=== PATIENT | female | born 1935 | race Native Hawaiian/Other Pacific Islander ===

== ENCOUNTER 2016-12-13 23:19 | Emergency (ER) | payer MEDICARE, OTHER ==
[2016-12-13 23:33] VITALS: O2SAT 99; BMI 21.4
--- NOTE | 2016-12-14 00:11 | ED PDOC ---
Arrival/HPI - General Chief Complaint: High Blood Pressure Time Seen by Provider: 12/13/16 23:41 Historian: Patient - History of Present Illness Narrative History of Present Illness (Text): 12/14/16 00:11 A 81 year old female, whose past medical history includes hypertension, presents to the emergency department complaining of elevated blood pressure, headache and vomiting. Patient denies any fever, shortness of breath, diarrhea or any other complaints at this time. Symptom Onset: Sudden Symptom Course: Unchanged Activities at Onset: Rest Context: Home Past Medical History - Provider Review Nursing Documentation Reviewed: Yes - Tetanus Immunization Tetanus Immunization: Unknown - Reproductive Menopause: Yes - Cardiac Hx Hypertension: Yes - Pulmonary Hx Respiratory Disorders: No - Neurological Hx Neurological Disorder: No - HEENT Hx HEENT Disorder: No - Renal Hx Renal Disorder: No - Endocrine/Metabolic Hx Endocrine Disorders: No - Hematological/Oncological Hx Blood Disorders: No - Integumentary Hx Dermatological Disorder: No - Musculoskeletal/Rheumatological Hx Falls: Yes - Gastrointestinal Hx Gastrointestinal Ulcer: Yes - Genitourinary/Gynecological Hx Genitourinary Disorders: No - Psychiatric Hx Psychophysiologic Disorder: No Hx Substance Use: No - Surgical History Other/Comment: abd surgery - Anesthesia Hx Anesthesia Reactions: No Hx Malignant Hyperthermia: No - Suicidal Assessment Feels Threatened In Home Enviroment: No Family/Social History - Physician Review Nursing Documentation Reviewed: Yes Family/Social History: No Known Family HX Smoking Status: Never Smoked Hx Alcohol Use: No Hx Substance Use: No Hx Substance Use Treatment: No Allergies/Home Meds Allergies/Adverse Reactions: Allergies unk antibiotic Allergy (Uncoded 12/13/16 23:33) RASH Home Medications: Home Meds Medication Instructions Recorded Confirmed Carvedilol [Coreg] 3.125 mg PO DAILY 07/15/14 12/13/16 Losartan [Cozaar] 40 mg PO DAILY 12/13/16 12/13/16 Review of Systems - Physician Review All systems were reviewed & negative as marked: Yes - Review of Systems Constitutional: absent: Fevers Respiratory: absent: SOB Gastrointestinal: Vomiting. absent: Diarrhea Neurological: Headache Physical Exam Vital Signs Reviewed: Yes Vital Signs Pulse Resp BP Pulse Ox 12/14/16 00:48 83 18 139/79 99 12/14/16 00:21 89 17 165/81 H 99 12/13/16 23:36 89 20 183/77 H 99 12/13/16 23:32 89 20 183/77 H 99 Temperature: Afebrile Blood Pressure: Hypertensive Pulse: Regular Respiratory Rate: Normal Appearance: Positive for: Well-Appearing, Non-Toxic, Comfortable Pain Distress: None Mental Status: Positive for: Alert and Oriented X 3 - Systems Exam Head: Present: Atraumatic, Normocephalic Pupils: Present: PERRL Extroacular Muscles: Present: EOMI Conjunctiva: Present: Normal Mouth: Present: Moist Mucous Membranes Neck: Present: Normal Range of Motion Respiratory/Chest: Present: Clear to Auscultation, Good Air Exchange. No: Respiratory Distress, Accessory Muscle Use Cardiovascular: Present: Regular Rate and Rhythm, Normal S1, S2. No: Murmurs Abdomen: Present: Normal Bowel Sounds. No: Tenderness, Distention, Peritoneal Signs Back: Present: Normal Inspection Upper Extremity: Present: Normal Inspection. No: Cyanosis, Edema Lower Extremity: Present: Normal Inspection. No: Edema Neurological: Present: GCS=15, CN II-XII Intact, Speech Normal Skin: Present: Warm, Dry, Normal Color. No: Rashes Psychiatric: Present: Alert, Oriented x 3, Normal Insight, Normal Concentration Medical Decision Making ED Course and Treatment: 12/14/16 00:10 Impression: A 81 year old female with elevated blood pressure, headache and vomiting. Plan: -- EKG -- CT head -- labs -- Reglan -- Reassess and disposition Prior Visits: Notes and results from previous visits were reviewed. Patient was last seen in the emergency department on 02/17/15 for evaluation of vomiting and elevated blood pressure. Progress Notes: EKG: Ordered, reviewed, and independently interpreted the EKG. Rate : 84 BPM Rhythm : NSR Interpretation : Nonspecific ST segment changes, normal intervals. CT Head Without Intravenous Contrast FINDINGS: Brain: No acute intracranial hemorrhage. Age-appropriate periventricular white matter disease. No edema. Bilateral basal ganglia calcifications. Ventricles: Age-appropriate ventriculomegaly. Bones: No acute displaced fracture. Stable lytic and sclerotic lesions within the calvarium. Sinuses: Unremarkable as visualized. No acute sinusitis. Mastoid air cells: Unremarkable as visualized. No mastoid effusion. IMPRESSION: No acute intracranial hemorrhage, or suspicious mass effect. Thank you for allowing us to participate in the care of your patient. Dictated and Authenticated by: Margarita Bartlett MD 12/14/2016 1:00 AM Eastern Time ([place] & [place]) pt declined ab Re-evaluation Time: 02:00 Reassessment Condition: Re-examined, Improved - Lab Interpretations Lab Results: 12/14/16 00:08 12/14/16 00:08 Lab Results 12/14/16 01:00: Urine Color Yellow, Urine Appearance Sl cloudy, Urine pH 7.0, Ur Specific Myton 1.015, Urine Protein Trace H, Urine Glucose (UA) Negative, Urine Ketones Negative, Urine Blood Trace-intact H, Urine Nitrate Negative, Urine Bilirubin Negative, Urine Urobilinogen 0.2, Ur Leukocyte Esterase Small H , Urine RBC 2 - 5, Urine WBC 0 - 2, Ur Epithelial Cells 0 - 2, Amorphous Sediment Many, Urine Bacteria Many 12/14/16 00:08: Sodium 136, Potassium 4.7, Chloride 101, Carbon Dioxide 28, Anion Gap 12, BUN 17, Creatinine 0.6, Est GFR ( Amer) > 60, Est GFR (Non- Af Amer) > 60, Random Glucose 144 H, Calcium 10.4, Total Bilirubin 0.7, AST 35, ALT 31, Alkaline Phosphatase 74, Total Protein 7.4, Albumin 4.4, Globulin 3.1, Albumin/Globulin Ratio 1.4, Lipase 82 12/14/16 00:08: WBC 14.4 H D, RBC 5.80, Hgb 13.1, Hct 39.0, MCV 67.2 L, MCH 22.6 L, MCHC 33.6, RDW 14.7 H, Plt Count 218, Gran % 89.9 H, Lymph % (Auto) 5.3 L, [place] % (Auto) 4.5, Eos % (Auto) 0.1 L, Baso % (Auto) 0.2, Gran # 12.91 H, Lymph # 0.8 L, [place] # 0.6, Eos # 0.0, Baso # 0.03 I have reviewed the lab results: Yes - RAD Interpretation Radiology Orders: 12/13/16 23:48 HEAD W/O CONTRAST [CT] Stat - EKG Interpretation Interpreted by ED Physician: Yes Type: 12 lead EKG - Medication Orders Current Medication Orders: Discontinued Medications Metoclopramide HCl (Reglan) 10 mg IVP ONCE ONE Stop: 12/13/16 23:50 Last Admin: 12/14/16 00:09 Dose: 10 mg IVP Administration Document 12/14/16 00:09 RD (Rec: 12/14/16 00:13 RD [id number]) Charges for Administration # of IVP Administrations 1 - Scribe Statement The provider has reviewed the documentation as recorded by the Scribe Kal Londono Provider Scribe Attestation: All medical record entries made by the Scribe were at my direction and personally dictated by me. I have reviewed the chart and agree that the record accurately reflects my personal performance of the history, physical exam, medical decision making, and the department course for this patient. I have also personally directed, reviewed, and agree with the discharge instructions and disposition. Disposition/Present on Arrival - Present on Arrival Any Indicators Present on Arrival: No History of DVT/PE: No History of Uncontrolled Diabetes: No Urinary Catheter: No History of Decub. Ulcer: No History Surgical Site Infection Following: None - Disposition Have Diagnosis and Disposition been Completed?: Yes Diagnosis: Headache Disposition: HOME/ ROUTINE Disposition Time: 02:00 Condition: GOOD Discharge Instructions (ExitCare): Acute Headache (ED) Forms: [employer] ([place])
[2016-12-14 00:17] LABS: BASO # 0.03 K/mm3 (0.0-2.0); BASO % 0.2 % (0.0-3.0); EOS % 0.1 % (1.5-5.0); GRAN # 12.91 (1.4-6.5); GRAN % 89.9 % (50.0-68.0); LYMPH # 0.8 (1.2-3.4); LYMPH % 5.3 % (22.0-35.0); MEAN CELL VOLUME 67.2 fl (80.0-105.0); MEAN CORPUSCULAR HEMOGLOBIN 22.6 pg (25.0-35.0); MEAN CORPUSCULAR HGB CONC 33.6 g/dl (31.0-37.0); MONO # 0.6 (0.1-0.6); MONO % 4.5 % (1.0-6.0); PLATELET COUNT 218 10^3/uL (120.0-450.0); RED CELL DISTRIBUTION WIDTH 14.7 % (11.5-14.5); WHITE BLOOD COUNT 14.4 10^3/ul (4.5-11.0)
[2016-12-14 00:49] VITALS: BP 139/79; PULSE 83; RESP 18
[2016-12-14 00:49] LABS: ALB/GLOB RATIO 1.4 (1.1-1.8); ALKALINE PHOSPHATASE 74 U/L (38-126); ALT/SGPT 31 U/L (7-56); AST/SGOT 35 U/L (14-36); BILIRUBIN,TOTAL 0.7 mg/dL (0.2-1.3); BLOOD UREA NITROGEN 17 mg/dL (7-21); CALCIUM 10.4 mg/dL (8.4-10.5); CARBON DIOXIDE 28 mmol/L (21-33); CHLORIDE 101 mmol/L (98-107); GFR AFRICAN-AMERICAN > 60; GLUCOSE,RANDOM 144 mg/dL (70-110); LIPASE 82 U/L (23-300); POTASSIUM 4.7 mmol/L (3.6-5.0); SODIUM 136 mmol/L (132-148); TOTAL PROTEIN 7.4 g/dL (5.8-8.3)
--- NOTE | 2016-12-14 01:00 | CT ---
EXAM: CT Head Without Intravenous Contrast CLINICAL HISTORY: 81 years old, female; Pain; Headache; Additional info: [facility] TECHNIQUE: Axial computed tomography images of the head/brain without intravenous contrast. All CT scans at this facility use one or more dose reduction techniques, viz.: automated exposure control; ma/kV adjustment per patient size (including targeted exams where dose is matched to indication; i.e. head); or iterative reconstruction technique. COMPARISON: CT - HEAD W/O CONTRAST 02/17/2015 3:49:10 AM FINDINGS: Brain: No acute intracranial hemorrhage. Age-appropriate periventricular white matter disease. No edema. Bilateral basal ganglia calcifications. Ventricles: Age-appropriate ventriculomegaly. Bones: No acute displaced fracture. Stable lytic and sclerotic lesions within the calvarium. Sinuses: Unremarkable as visualized. No acute sinusitis. Mastoid air cells: Unremarkable as visualized. No mastoid effusion. IMPRESSION: No acute intracranial hemorrhage, or suspicious mass effect.
[2016-12-14 01:27] LABS: URINE BILIRUBIN NEGATIVE (NEGATIVE); URINE BLOOD TRACE-INTACT (NEGATIVE); URINE GLUCOSE (UA) NEGATIVE (NEGATIVE); URINE KETONE NEGATIVE (NEGATIVE); URINE LEUKOCYTE ESTERASE SMALL Leu/uL (NEGATIVE); URINE PROTEIN TRACE mg/dL (<30 mg/dL); URINE UROBILINOGEN 0.2 E.U./dL (<1 E.U./dL)
[2016-12-14 01:30] LABS: URINE APPEARANCE SL CLOUDY (CLEAR); URINE COLOR YELLOW (YELLOW)
[2016-12-14 01:52] LABS: URINE AMORPHOUS SEDIMENT MANY; URINE BACTERIA MANY (NEG); URINE EPITHELIAL CELLS 0 - 2 /hpf (0-5); URINE WBC 0 - 2 /hpf (0-6)
--- NOTE | 2016-12-14 08:49 | CARD ---
APPROVED REPORT EKG Measurement Heart [id number] <Conclusion> Normal sinus rhythm Q in 3 Normal ECG No change
== END 2016-12-14 02:10 | disposition home or self-care (01) ==
LOC: ED 23:19
DX: R51 Headache (principal)
CPT/HCPCS: 70450; 80053; 81001; 83690; 85025; 87086; 93005; 96374; 99283; J2765

== ENCOUNTER 2017-06-07 16:31 | Emergency (ER) | payer MEDICARE, OTHER ==
[2017-06-07 16:36] VITALS: BMI 22.2
--- NOTE | 2017-06-07 16:57 | ED PDOC ---
Arrival/HPI - General Chief Complaint: Trauma Time Seen by Provider: 06/07/17 16:50 Historian: Patient - History of Present Illness Narrative History of Present Illness (Text): 06/07/17 16:51 81 y/o female, pmh including htn, psychiatric history of insomnia, FS 137, bib son, c/o fatigue/cough/fever x 3 days with fever started this morning. Pt. has been having fatigue, cough with productive phelgm, fever for the past 3 days, woke up this morning and got up from the bed too fast which she fall on the rt. frontal forehead, no LOC, been feeling fatigue, no night sweat, no abdominal pain, no nausea or vomiting, no rash, no other medical or psychological complaints. Past Medical History - Provider Review Nursing Documentation Reviewed: Yes - Infectious Disease Hx of Infectious Diseases: None - Tetanus Immunization Tetanus Immunization: Unknown - Cardiac Hx Hypertension: Yes - Pulmonary Hx Respiratory Disorders: No - Neurological Hx Neurological Disorder: No - HEENT Hx HEENT Disorder: No - Renal Hx Renal Disorder: No - Endocrine/Metabolic Hx Endocrine Disorders: No - Hematological/Oncological Hx Blood Disorders: No - Integumentary Hx Dermatological Disorder: No - Musculoskeletal/Rheumatological Hx Falls: Yes - Gastrointestinal Hx Gastrointestinal Ulcer: Yes - Genitourinary/Gynecological Hx Genitourinary Disorders: No - Psychiatric Hx Psychophysiologic Disorder: No Hx Substance Use: No Other/Comment: insomnia - Surgical History Other/Comment: abd surgery - Anesthesia Hx Anesthesia: Yes Hx Anesthesia Reactions: No Hx Malignant Hyperthermia: No - Suicidal Assessment Feels Threatened In Home Enviroment: No Family/Social History - Physician Review Nursing Documentation Reviewed: Yes Family/Social History: Unknown Family HX Smoking Status: Never Smoked Hx Alcohol Use: No Hx Substance Use: No Hx Substance Use Treatment: No Allergies/Home Meds Allergies/Adverse Reactions: Allergies unk antibiotic Allergy (Uncoded 12/13/16 23:33) RASH Home Medications: Home Meds Medication Instructions Recorded Confirmed Carvedilol [Coreg] 3.125 mg PO DAILY 07/15/14 12/13/16 Losartan [Cozaar] 40 mg PO DAILY 12/13/16 12/13/16 Review of Systems - Review of Systems Constitutional: Fatigue, Fevers Eyes: absent: Vision Changes ENT: absent: Hearing Changes Respiratory: Cough, Sputum. absent: SOB, Wheezing Cardiovascular: absent: Chest Pain Gastrointestinal: absent: Abdominal Pain, Diarrhea, Nausea, Vomiting Musculoskeletal: absent: Arthralgias, Back Pain, Myalgias Skin: absent: Rash, Pruritis Neurological: Headache. absent: Dizziness, Focal Weakness, Gait Changes, Speech Changes Psychiatric: absent: Anxiety, Depression, Suicidal Ideation Physical Exam Vital Signs Reviewed: Yes Vital Signs Temp Pulse Resp BP Pulse Ox 06/07/17 22:23 114 H 125/70 06/07/17 21:07 100 F H 06/07/17 20:26 99.5 F 105 H 17 117/67 98 06/07/17 18:48 105 H 16 124/69 96 06/07/17 16:41 100.2 F H 114 H 18 109/69 99 Temperature: Febrile Blood Pressure: Normal Pulse: Tachycardic Respiratory Rate: Normal Appearance: Positive for: Well-Appearing, Non-Toxic, Ill-Appearing Pain Distress: Mild Mental Status: Positive for: Alert and Oriented X 3 - Systems Exam Head: Present: Tenderness (on the rt. frontal forehead region) Pupils: Present: PERRL Extroacular Muscles: Present: EOMI Conjunctiva: Present: Normal Ears: Present: NORMAL TM, Normal Canal. No: Erythema Mouth: Present: Moist Mucous Membranes Pharnyx: No: ERYTHEMA, EXUDATE, TONSILS ENLARGED, Uvular Deviation Nose (External): Present: Atraumatic. No: Abrasion, Contusion, Laceration Nose (Internal): Present: Normal Inspection, No Active Bleeding. No: Rhinorrhea , Septal Hematoma, Epistaxis Neck: Present: Normal Range of Motion. No: Meningeal Signs, MIDLINE TENDERNESS , Paraspinal Tenderness, Lymphadenopathy, Trachea Midline Respiratory/Chest: Present: Clear to Auscultation, Good Air Exchange, Rhonchi ( rt. lower lobe). No: Respiratory Distress, Accessory Muscle Use, Wheezes, Decreased Breath Sounds, Rales, Retracting, Tachypneic, Tender to Palpation Cardiovascular: Present: Regular Rate and Rhythm, Normal S1, S2. No: Murmurs Abdomen: Present: Normal Bowel Sounds. No: Tenderness, Distention, Peritoneal Signs, Rebound, Guarding Back: Present: Normal Inspection. No: CVA Tenderness, Midline Tenderness, Paraspinal Tenderness, Pain with Leg Raise, Decubitus Ulcer Upper Extremity: Present: Normal Inspection, Normal ROM. No: Cyanosis, Edema, Deformity Lower Extremity: Present: Normal Inspection, Normal ROM, Capillary Refill < 2 s. No: Edema, Deformity Neurological: Present: GCS=15, Speech Normal, Motor Func Grossly Intact, Gait Normal, Memory Normal Skin: Present: Warm, Dry, Normal Color. No: Rashes Psychiatric: Present: Alert, Oriented x 3, Normal Insight, Normal Concentration Medical Decision Making ED Course and Treatment: 06/07/17 17:04 -labs/ua/rapid flu/vbg -CT head/cervica -Chest xray -EKG -IVF/tyelnol -Observe and reassess 06/07/17 21:17 -Pt. is having a fever, motrin ordered as she took tylenol earlier. 06/07/17 22:08 -Pt. stated that she is due for her coreg 3.125mg po ordered. 06/07/17 22:41 -Pt. remains tachycardia around 108BPM, no cardiopulmonary complaints, stated that she feels much better compared to the time she came in, eating and had dinner, request to be discharge home and wanna sign out if I won't discharge her. -EKG: Sinus tachycardia @ 105 BPM, no acute ST or T wave changes compared with previous ekg. -CT Head: Stable, unremarkable unenhanced head CT. No intracranial hemorrhage or mass-effect. No parenchymal edema identified in the interval. A small right frontal scalp hematoma is identified without underlying fracture. -CT Cervical: Normal curvature without fracture or spondylolisthesis. No severe central stenosis identified throughout. Advanced multilevel degenerative neural foraminal stenoses are identified due to uncovertebral and facet arthropathy primarily at C3-4, C4-5 and C5-6 as discussed above. Findings are seen worst at C5-6 where a moderate severe right C6 and severe left C6 neural foraminal stenoses are identified. No definitive disc herniation grossly evident. MRI is more sensitive for soft tissue resolution and can be utilized for follow-up nevertheless. -Chest xray: no active disease -Labs show: no acute findings -Lactic acid: 2, still within normal limit. -Rapid flu: positive for influenza B -UA show: positive for leukocyte, 1gm Rocephine IV ordered. -Pt. feels much better,eating and drinking well. -You sign out against medical advice. 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 -AMA ER The patient refuses to stay in the Emergency Room (ER) to continue the care and wishes to leave the emergency department against my medical advice. Patient was told that staying in the ER is necessary and a full explanation of the reasons why was given, and understood by the patient with alert and oriented x4. The risk of leaving were explained in laymans term and including but not limited to sepsis, myocardial infarction, pulmonary embolism, organ failure, pain, worsening of condition, permanent disability and from an undiagnosed or untreated condition. The patient accepts these risks, and is in my judgment is competent and capable of understanding the clinical situation and explanation of the risk of leaving. The patient is able to verbally repeated me back the above explained risks and benefits back to me, and verbally expressed understanding. Patient was given the opportunity to ask questions and change mind. The patient was instructed regarding the best care for the present symptoms, and to follow up as soon as possible with the primary care doctor including specialist or return to the emergency department at any time for continuing care. - Lab Interpretations Lab Results: 06/07/17 17:10 06/07/17 18:09 Lab Results 06/07/17 18:40: Urine Color Light yellow, Urine Appearance Sl cloudy, Urine pH 6.0, Ur Specific [place] 1.025, Urine Protein Negative, Urine Glucose (UA) Negative, Urine Ketones Negative, Urine Blood Small H, Urine Nitrate Negative, Urine Bilirubin Negative, Urine Urobilinogen 0.2, Ur Leukocyte Esterase Small H , Urine RBC 1 - 3, Urine WBC 2 - 5, Ur Epithelial Cells 4 - 5, Urine Bacteria Large 06/07/17 18:30: Influenza Typ A,B (EIA) Pos for influenza b H 06/07/17 18:09: Sodium 136, Chloride 100, Potassium 3.7, Carbon Dioxide 28, Anion Gap 12, BUN 15, Creatinine 0.8, Est GFR ( Amer) > 60, Est GFR (Non- Af Amer) > 60, Random Glucose 113 H, Calcium 10.5, Magnesium 2.1, Total Bilirubin 0.2, AST 39 H, ALT 31, Alkaline Phosphatase 65, NT-Pro-B Natriuret Pep 107, Total Protein 7.1, Albumin 3.9, Globulin 3.2, Albumin/Globulin Ratio 1.2 06/07/17 18:09: pO2 36, VBG pH 7.30 L, VBG pCO2 56.0, VBG HCO3 27.6, VBG Total CO2 29.3 H, VBG O2 Sat (Calc) 73.1 H, VBG Base Excess 0.1, VBG Potassium 5.6 H, Sodium 132.0, Chloride 100.0, Glucose 101, Lactate 2.0, FiO2 21.0, Venous Blood Potassium 5.6 H 06/07/17 17:10: ESR 4 06/07/17 17:10: WBC 6.9 D, RBC 5.62, Hgb 12.5, Hct 37.9, MCV 67.4 L, MCH 22.2 L , MCHC 33.0, RDW 14.8 H, Plt Count 172, Gran % 63.0, Lymph % (Auto) 23.2, Martin % (Auto) 13.4 H, Eos % (Auto) 0.3 L, Baso % (Auto) 0.1, Gran # 4.32, Lymph # ( Auto) 1.6, Martin # (Auto) 0.9 H, Eos # (Auto) 0.0, Baso # (Auto) 0.01 06/07/17 16:56: POC Glucose (mg/dL) 137 H - RAD Interpretation Radiology Orders: 06/07/17 16:57 CERVICAL SPINE W/O CONTRAST [CT] Stat HEAD W/O CONTRAST [CT] Stat CHEST ONE VIEW [RAD] Stat CT Head: PROCEDURE: CT HEAD WITHOUT CONTRAST. HISTORY: fall, COMPARISON: Unenhanced head CT 12/14/2016. TECHNIQUE: Axial computed tomography images were obtained through the head/brain without intravenous contrast. Radiation dose: Total exam DLP = 934.95 mGy-cm. This CT exam was performed using one or more of the following dose reduction techniques: Automated exposure control, adjustment of the mA and/or kV according to patient size, and/or use of iterative reconstruction technique. FINDINGS: HEMORRHAGE: No intracranial hemorrhage. A right frontal scalp hematoma is identified. BRAIN: Mild, diffuse cerebral atrophy reiterated. Nevertheless, corticomedullary differentiation remains normal and there is no mass effect. There is no suspicious extra-axial fluid collection appreciated there is no suspicious density throughout the midline brain anatomy in the posterior fossa contents appear unremarkable throughout. VENTRICLES: Unremarkable. No hydrocephalus. CALVARIUM: No destructive bony lesion or displaced fracture identified including through the skullbase. Benign midline neck septal lucency is stable in dates back to prior head CT 02/17/2015 at least. PARANASAL SINUSES: Unremarkable as visualized. No significant inflammatory changes. MASTOID AIR CELLS: Unremarkable as visualized. No inflammatory changes. OTHER FINDINGS: None. IMPRESSION: Stable, unremarkable unenhanced head CT. No intracranial hemorrhage or mass- effect. No parenchymal edema identified in the interval. A small right frontal scalp hematoma is identified without underlying fracture. CT Cervical: VERTEBRAE: No fracture or spondylolisthesis appreciated. Normal cervical alignment is identified although mild multilevel spondylosis appreciate the upper mid cervical levels. Multilevel facet joint degenerative arthropathy is identified , moderate to severe as well as uncovertebral joint arthropathy. Discs heights are grossly preserved. DISCS/SPINAL CANAL/NEURAL FORAMINA: At C3-4, there is a limited generalized disc bulge without significant central canal stenosis occurring. However, right uncovertebral osteophyte development and facet joint degenerative change results in moderate to severe right with moderate left neural foraminal stenosis. At C4-5, there is a mild posterior straight ridge flattening the ventral thecal sac without causing significant central stenosis. A moderate degenerative right neural foraminal stenosis identified with mild left neural foraminal stenosis. At C5-6, a mild posterior straight region appreciate without significant central stenosis resulting. Moderate to severe right and severe left degenerative neural foraminal stenoses are identified due to uncovertebral arthropathy and facet joint degenerative change. PARASPINAL SOFT TISSUES: Prevertebral and paraspinal soft tissues reflect mild inhomogeneity within the thyroid lobes without focal mass evident grossly. OTHER FINDINGS: Extensive osteopenia suggests osteoporosis. IMPRESSION: 1. Normal curvature without fracture or spondylolisthesis. No severe central stenosis identified throughout. 2. Advanced multilevel degenerative neural foraminal stenoses are identified due to uncovertebral and facet arthropathy primarily at C3-4, C4-5 and C5-6 as discussed above. Findings are seen worst at C5-6 where a moderate severe right C6 and severe left C6 neural foraminal stenoses are identified. No definitive disc herniation grossly evident. MRI is more sensitive for soft tissue resolution and can be utilized for follow-up nevertheless. Chest xray: FINDINGS: Lungs: Mild strandy basilar density likely atelectasis and/or scarring. No focal areas of consolidation to suggest pneumonia. 3 mm nodular density in the right lung apex, stable possibly representing a small calcified granuloma or if related to the rib a bone island. Pleural space: Unremarkable. Heart: Unremarkable. Mediastinum: Unremarkable. Bones/joints: No acute fracture. IMPRESSION: No acute cardiopulmonary disease. Thank you for allowing us to participate in the care of your patient. Dictated and Authenticated by: Joaquim Brennan MD 06/07/2017 7:20 PM Eastern Time ([place] & [place]) Medical Scientific Officer: Radiologist - EKG Interpretation EKG Interpretation (Text): 06/07/17 17:05 Sinus tachycardia @ 105 BPM, no acute ST or T wave changes compared with previous ekg. Interpreted by ED Physician: Yes Comparison: Com.w/previous EKG - Medication Orders Current Medication Orders: Sodium Chloride (Sodium Chloride 0.9%) 1,000 mls @ 100 mls/hr IV .Q10H ZIA Last Admin: 06/07/17 17:21 Dose: 100 mls/hr eMAR Start Stop Document 06/07/17 17:21 SRE (Rec: 06/07/17 17:21 SRE [id number]) Intravenous Solution Start Date 06/07/17 Start Time 17:21 Discontinued Medications Acetaminophen (Tylenol 325mg Tab) 650 mg PO STAT STA Stop: 06/07/17 16:58 Last Admin: 06/07/17 20:02 Dose: 650 mg Re-Assess: MAR Pain/Vitals Document 06/07/17 21:02 SRE (Rec: 06/07/17 21:20 SRE [id number]) Pain Reassessment Is This A Pain ReAssessment? Yes Carvedilol (Coreg) 3.125 mg PO STAT STA Stop: 06/07/17 22:08 Last Admin: 06/07/17 22:23 Dose: 3.125 mg MAR Pulse and Blood Pressure Document 06/07/17 22:23 SRE (Rec: 06/07/17 22:23 SRE [id number]) Pulse Pulse Rate (60-90) 114 Blood Pressure Blood Pressure (100/60-150/90) 125/70 Ceftriaxone Sodium (Rocephin 1 Gram Ivpb) 1 gm in 100 mls @ 200 mls/hr IVPB STAT STA PRN Reason: Protocol Stop: 06/07/17 19:50 Last Admin: 06/07/17 20:00 Dose: 200 mls/hr eMAR Start Stop Document 06/07/17 20:00 SRE (Rec: 06/07/17 20:01 SRE [id number]) Intravenous Solution Start Date 06/07/17 Start Time 20:01 End Date 06/07/17 End time 21:00 Total Infusion Time 59 Ibuprofen (Motrin Tab) 600 mg PO STAT STA Stop: 06/07/17 21:18 Last Admin: 06/07/17 21:32 Dose: 600 mg MAR Pain/Vitals Document 06/07/17 21:32 SRE (Rec: 06/07/17 21:33 SRE [id number]) Pain Reassessment Is This A Pain ReAssessment? Yes Sleep Is patient sleeping during reassessment? No Oseltamivir Phosphate (Tamiflu Cap) 75 mg PO STAT STA PRN Reason: Protocol Stop: 06/07/17 19:11 Last Admin: 06/07/17 19:54 Dose: 75 mg - PA / WEBSITE DESIGNER / Resident Statement / has reviewed & agrees with the documentation as recorded. Disposition/Present on Arrival - Present on Arrival Any Indicators Present on Arrival: No History of DVT/PE: No History of Uncontrolled Diabetes: No Urinary Catheter: No History of Decub. Ulcer: No History Surgical Site Infection Following: None - Disposition Have Diagnosis and Disposition been Completed?: Yes Diagnosis: Urinary tract infection, Influenza, Non-compliant patient Disposition: AGAINST MEDICAL ADVICE Disposition Time: 19:16 Patient Problems: Current Active Problems Problem Status Onset Urinary tract infection Acute Influenza Acute Condition: IMPROVED Additional Instructions: -You sign out against medical advice. 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 Prescriptions: Acetaminophen [Tylenol 325mg tab] 2 tab PO QID PRN #35 tab PRN Reason: Other Benzonatate [Tessalon Perles] 100 mg PO TID PRN #30 sgl PRN Reason: Other Cephalexin [cephalexin] 500 mg PO TID #21 cap Oseltamivir [Tamiflu] 75 mg PO BID #10 cap Referrals: Misael Page MD [Primary Care Provider] - Follow up with primary Sergei Cárdenas MD [Staff Provider] - Follow up with primary Kelton Scruggs MD [Staff Provider] - Follow up with primary Forms: [employer] ([place]), WORK NOTE
[2017-06-07] MEDS ORDERED: Sodium Chloride 0.9% 1,000 ML IV SCH (17:00)
--- NOTE | 2017-06-07 17:43 | CT ---
PROCEDURE: CT HEAD WITHOUT CONTRAST. HISTORY: fall, COMPARISON: Unenhanced head CT 12/14/2016. TECHNIQUE: Axial computed tomography images were obtained through the head/brain without intravenous contrast. Radiation dose: Total exam DLP = 934.95 mGy-cm. This CT exam was performed using one or more of the following dose reduction techniques: Automated exposure control, adjustment of the mA and/or kV according to patient size, and/or use of iterative reconstruction technique. FINDINGS: HEMORRHAGE: No intracranial hemorrhage. A right frontal scalp hematoma is identified. BRAIN: Mild, diffuse cerebral atrophy reiterated. Nevertheless, corticomedullary differentiation remains normal and there is no mass effect. There is no suspicious extra-axial fluid collection appreciated there is no suspicious density throughout the midline brain anatomy in the posterior fossa contents appear unremarkable throughout. VENTRICLES: Unremarkable. No hydrocephalus. CALVARIUM: No destructive bony lesion or displaced fracture identified including through the skullbase. Benign midline neck septal lucency is stable in dates back to prior head CT 02/17/2015 at least. PARANASAL SINUSES: Unremarkable as visualized. No significant inflammatory changes. MASTOID AIR CELLS: Unremarkable as visualized. No inflammatory changes. OTHER FINDINGS: None. IMPRESSION: Stable, unremarkable unenhanced head CT. No intracranial hemorrhage or mass-effect. No parenchymal edema identified in the interval. A small right frontal scalp hematoma is identified without underlying fracture.
[2017-06-07 17:48] LABS: BASO # 0.01 K/mm3 (0.0-2.0); BASO % 0.1 % (0.0-3.0); EOS % 0.3 % (1.5-5.0); GRAN # 4.32 (1.4-6.5); HEMOGLOBIN 12.5 g/dL (12.0-16.0); LYMPH # 1.6 (1.2-3.4); LYMPH % 23.2 % (22.0-35.0); MEAN CELL VOLUME 67.4 fl (80.0-105.0); MEAN CORPUSCULAR HEMOGLOBIN 22.2 pg (25.0-35.0); MONO # 0.9 (0.1-0.6); MONO % 13.4 % (1.0-6.0); PLATELET COUNT 172 10^3/uL (120.0-450.0); RBC 5.62 10^6/uL (3.5-6.1); RED CELL DISTRIBUTION WIDTH 14.8 % (11.5-14.5); WHITE BLOOD COUNT 6.9 10^3/ul (4.5-11.0)
--- NOTE | 2017-06-07 17:54 | CT ---
PROCEDURE: CT Cervical Spine without contrast HISTORY: <fall this morning> COMPARISON: None available. TECHNIQUE: Axial computed tomography images were obtained of the cervical spine without the use of intravenous contrast. Coronal and sagittal reformatted images were created and reviewed. Radiation dose: Total exam DLP = 335.65 mGy-cm. This CT exam was performed using one or more of the following dose reduction techniques: Automated exposure control, adjustment of the mA and/or kV according to patient size, and/or use of iterative reconstruction technique. FINDINGS: VERTEBRAE: No fracture or spondylolisthesis appreciated. Normal cervical alignment is identified although mild multilevel spondylosis appreciate the upper mid cervical levels. Multilevel facet joint degenerative arthropathy is identified, moderate to severe as well as uncovertebral joint arthropathy. Discs heights are grossly preserved. DISCS/SPINAL CANAL/NEURAL FORAMINA: At C3-4, there is a limited generalized disc bulge without significant central canal stenosis occurring. However, right uncovertebral osteophyte development and facet joint degenerative change results in moderate to severe right with moderate left neural foraminal stenosis. At C4-5, there is a mild posterior straight ridge flattening the ventral thecal sac without causing significant central stenosis. A moderate degenerative right neural foraminal stenosis identified with mild left neural foraminal stenosis. At C5-6, a mild posterior straight region appreciate without significant central stenosis resulting. Moderate to severe right and severe left degenerative neural foraminal stenoses are identified due to uncovertebral arthropathy and facet joint degenerative change. PARASPINAL SOFT TISSUES: Prevertebral and paraspinal soft tissues reflect mild inhomogeneity within the thyroid lobes without focal mass evident grossly. OTHER FINDINGS: Extensive osteopenia suggests osteoporosis. IMPRESSION: 1. Normal curvature without fracture or spondylolisthesis. No severe central stenosis identified throughout. 2. Advanced multilevel degenerative neural foraminal stenoses are identified due to uncovertebral and facet arthropathy primarily at C3-4, C4-5 and C5-6 as discussed above. Findings are seen worst at C5-6 where a moderate severe right C6 and severe left C6 neural foraminal stenoses are identified. No definitive disc herniation grossly evident. MRI is more sensitive for soft tissue resolution and can be utilized for follow-up nevertheless.
[2017-06-07 18:56] LABS: ALB/GLOB RATIO 1.2 (1.1-1.8); ALBUMIN 3.9 g/dL (3.0-4.8); ALT/SGPT 31 U/L (7-56); AST/SGOT 39 U/L (14-36); BLOOD UREA NITROGEN 15 mg/dL (7-21); CALCIUM 10.5 mg/dL (8.4-10.5); GFR AFRICAN-AMERICAN > 60; GFR NON-AFRICAN AMERICAN > 60
[2017-06-07 18:57] LABS: URINE BILIRUBIN NEGATIVE (NEGATIVE); URINE BLOOD SMALL (NEGATIVE); URINE GLUCOSE (UA) NEGATIVE (NEGATIVE); URINE LEUKOCYTE ESTERASE SMALL Leu/uL (NEGATIVE); URINE PROTEIN NEGATIVE mg/dL (<30 mg/dL); URINE UROBILINOGEN 0.2 E.U./dL (<1 E.U./dL)
[2017-06-07 18:59] LABS: URINE APPEARANCE SL CLOUDY (CLEAR); URINE COLOR LIGHT YELLOW (YELLOW)
[2017-06-07 19:03] LABS: B-TYPE NATRIURETIC PEPTIDE 107 pg/mL (0-450)
[2017-06-07 19:11] LABS: URINE BACTERIA LARGE (NEG)
[2017-06-07 19:16] LABS: VENOUS BLOOD GAS BASE EXCESS 0.1 mmol/L (0.0-2.0); VENOUS BLOOD GAS PO2 36 mm/Hg (30-55)
[2017-06-07] MEDS ORDERED: cefTRIAXone 1 gm 1 GM/100 ML BAG IVPB STA (19:21)
[2017-06-07 20:27] VITALS: O2SAT 98
[2017-06-07] MEDS ORDERED: Ibuprofen 100 MG/5 ML (BULK) PO STA (21:07)
[2017-06-07 22:52] VITALS: BP 130/77; PULSE 106; RESP 18; TEMP 99.6
--- NOTE | 2017-06-08 08:12 | RAD ---
PROCEDURE: CHEST RADIOGRAPH, 1 VIEW HISTORY: cough/fever COMPARISON: Portable chest 02/17/2015. FINDINGS: LUNGS: No acute infiltrate is identified bilaterally. PLEURA: No pneumothorax or pleural fluid seen. CARDIOVASCULAR: Normal. OSSEOUS STRUCTURES: No significant abnormalities. VISUALIZED UPPER ABDOMEN: Normal. OTHER FINDINGS: None. IMPRESSION: No interval acute cardiopulmonary disease appreciated.
--- NOTE | 2017-06-08 10:09 | CARD ---
APPROVED REPORT EKG Measurement Heart [id number] <Conclusion> Sinus tachycardia Loss of R in V1-V2 Can Represent [place].
== END 2017-06-07 22:55 | disposition left against medical advice (07) ==
LOC: ED 16:31
DX: J11.1 Influenza due to unidentified influenza virus with other respiratory manifestations (principal); N39.0 Urinary tract infection, site not specified; Z91.19 Patient's noncompliance with other medical treatment and regimen; I10 Essential (primary) hypertension
CPT/HCPCS: 70450; 71045; 72125; 80053; 81001; 82803; 82948; 83735; 83880; 85025; 85651; 86140; 87040; 87086; 87804; 93005; 96365; 99285; J0696; J7040